=== PATIENT | female | born 1965 | race Caucasian/White ===

== ENCOUNTER 2017-02-21 22:31 | Emergency (ER) | payer BC ==
[~2017-02-21] VITALS: Ht 180.3 cm; Wt 72.6 kg
[2017-02-21 22:51] VITALS: BP 130/78
--- NOTE | 2017-02-21 22:57 | PHYS DOC ---
General Chief Complaint: POST-OP PROBLEM Stated Complaint: POST OP PROBLEM Time Seen by MD: 22:56 Source: patient Exam Limitations: no limitations Problems: History of Present Illness Initial Comments Patient is a 51-year-old female who comes to the ED complaining of postoperative pain. Patient states she has breast cancer and is following with doctors at , states she had a left-sided port placed earlier today. She says when she went home the area began to swell improves becoming painful. She took one of the "pain meds" at home with some relief but has not taken any since. On arrival she is very anxious but denies shortness of breath or other symptoms. Timing/Duration: other Severity: mild Modifying Factors: improves with medication, worse with movement Associated Symptoms: other Allergies: Coded Allergies: bupropion (Verified Allergy, Unknown, 02/21/17) Past Medical History Medical History: other (breast cancer) Surgical History: noncontributory Social History Smoker: non-smoker Alcohol: none Drugs: none Review of Systems Constitutional: denies chills, denies diaphoresis, denies fever Respiratory: denies cough, denies shortness of breath, denies wheezing Cardiovascular: see HPI, denies chest pain, denies palpitations, denies syncope Gastrointestinal: denies abdominal pain, denies nausea, denies vomiting Musculoskeletal: see HPI Skin: see HPI Physical Exam General Appearance: WD/WN, mild distress (anxious) Neck: non-tender, supple Respiratory: normal breath sounds, no respiratory distress Gastrointestinal: non tender, soft Extremities: non-tender, normal inspection Neurologic/Psychiatric: alert, oriented x 3 Skin: warm/dry (left chest port with minimal bruising no erythema or discharge) Orders, Labs, Meds Patient states that after talking with staff prior to my seeing her she calmed down and feels like she doesn't need any further evaluation. She says she just didn't know what to expect stating that she was surprised she had any pain at all after she went home. I asked her repeatedly if she likely any further evaluation or treatment each time stating that she wished she would've just taken her pain medication at home because she is feeling much better now. I advised her she can return at any time and we discussed signs and symptoms to monitor as well as urgent indications to return. Her questions were answered she expressed agreement and understanding of treatment plan. Departure Time of Disposition: 22:56 Disposition: 01 HOME, SELF-CARE Diagnosis: Post-operative pain Condition: GOOD Patient Instructions: Pain Relief Preoperatively and Postoperatively Additional Instructions: As discussed at this time do not want any further evaluation or treatment. Continue postoperative instructions and medications given by your doctor's earlier today. Follow-up with your doctors as directed. Return to ED with new or changing symptoms. ELIZABETH ATKINSON DO Feb 21, 2017 22:57
== END 2017-02-21 23:00 | disposition home or self-care (01) ==
LOC: ER 22:31
DX: G89.18 Other acute postprocedural pain (principal); Z98.890 Other specified postprocedural states; Z88.8 Allergy status to other drugs, medicaments and biological substances
CPT/HCPCS: 99281

== ENCOUNTER → 2020-06-05 | Outpatient (CLI) | payer BC ==
--- NOTE | 2020-06-05 15:45 | RAD ---
CT LEFT UPPER EXTREMITY WO History: Fall 2 days ago. Bruising, elbow and forearm pain. Comparison: None. Technique: Noncontrast CT of the left forearm. Findings: There is a minimally comminuted, nondisplaced intra-articular fracture of the radial head. A linear 7 mm calcific density projects at the dorsal aspect of the radial head without donor site identified. There is a small elbow effusion. Mild soft tissue swelling at the olecranon. Impression: 1. Minimally comminuted nondisplaced intra-articular fracture of the radial head. 2. Linear calcific density measuring 7 mm projecting posterior to the radial head of uncertain signi ficance may represent additional fracture fragment versus sequela of old injury. ------ Exposure: One or more of the following individualized dose reduction techniques were utilized for thi s examination: 1. Automated exposure control 2. Adjustment of the mA and/or kV according to patient size 3. Use of iterative reconstruction technique. Electronically signed by: Orlando Apple MD (06/05/2020 3:42 PM) [facility]
== END ==
LOC: CT 14:33
PROVIDERS: ATTEND Family Medicine
DX: S52.122A Displaced fracture of head of left radius, initial encounter for closed fracture (principal); X58.XXXA Exposure to other specified factors, initial encounter; Y93.89 Activity, other specified; Y92.89 Other specified places as the place of occurrence of the external cause; Y99.8 Other external cause status
CPT/HCPCS: 73200